=== PATIENT | female | born 1985 | race Caucasian/White ===

== ENCOUNTER 2016-07-25 18:20 | Inpatient (IN) | payer OTHER ==
[2016-07-25] MEDS ORDERED: LACTATED RINGERS 1,000 ML IV PRN (18:56)
[2016-07-25] MEDS ORDERED: MINERAL OIL 25 ML BOT ONE (19:28)
[2016-07-25] MEDS ORDERED: PUMP TUBING ONE (19:28)
[2016-07-25] MEDS ORDERED: LIDOCAINE 1% (PRES FREE) 30 ML VIAL ONE (19:28)
[2016-07-25] MEDS ORDERED: LIDOCAINE Viscous 2% 15 ML UDCUP ONE (19:28)
[2016-07-25] MEDS ORDERED: IV START KIT ONE (19:28)
[2016-07-25] MEDS ORDERED: LACTATED RINGERS 1,000 ML ONE (19:28)
[2016-07-25] MEDS ORDERED: OXYTOCIN 10 UNITS/ML VIAL ONE (19:28)
[2016-07-25] MEDS ORDERED: OXYTOCIN IN LR 0 ML IV ONE (19:29)
[2016-07-25 20:30] LABS: HEMATOCRIT 37.8 % (37.0-47.0); HEMOGLOBIN 13.2 gm/l (12.0-16.0); MEAN CELL VOLUME 94.7 fl (81.0-99.0); MEAN CORPUSCULAR HEMOGLOBIN 33.1 pg (27.0-31.0); MEAN CORPUSCULAR HGB CONC 34.9 g/dl (33.0-37.0); RED CELL DISTRIBUTION WIDTH 12.6 % (11.5-14.5)
[2016-07-25 20:52] VITALS: BMI 22.8
--- NOTE | 2016-07-25 21:21 | PCMAN ---
OB Admission Note - History : 2 Term: 1 : 0 Abortions (S&E): 0 Livin EDC:: 08/01/16 (by sure LMP) Gestational Age (weeks): 39 Days (#/7): 0 Admit Cervical Dilation:: 4 Admit Cervical Effacement (%):: 60 Admit Station:: -2 Admit Presentaton:: cephalic by clinic Membrane Status: Ruptured Rupture (Date): 07/25/16 Rupture (Time): 16:00 Membranes Comment:: clear fluid Labor Onset (Date): 07/25/16 Labor Onset (Time): 16:00 Contractions: Yes Contraction Frequency:: q 5-10min, mild Heart Rate:: 140 (moderate/accels present/decels absent) Status:: Cat. I, appropriate for [place] EFW:: 7.5lbs Summary of Course:: Onset to care at 11wks x 12 visits. Pre preg wt 120, BMI 19.7, TWG 26lbs. BERNIE by sure LMP. Uncomplicated . GBS neg. Rubella non-immune. Ob Hx: uncomplicated . Open to an epidural with this labor, supported by her and her sister. Reported gross SROM at 1600 for clear fluid. Regular mild contractions. Given hx of fast labor with her first, desired to come to [facility] for admit in labor. Open to Epidural anesthesia but currently undecided. Declines AMTSL. - Labs Blood Type: O (+) positive Hct/Hgb:: 11.1 Rubella Status: Non-immune GBS Status: Negative Other Labs:: nml 1hr GTT - Review of Systems ROS neg - Physical Exam General: Afebrile (No distress at this time) Psych/Mental Status: Mood/Affect Appropriate, Judgment/Insight Intact Neurological: Grossly Intact, Alert, Oriented x 4, Normal Gait, Normal Speech Lungs: Clear to Auscultation Bilaterally Cardiovascular: Regular Rate and Rhythm Genitourinary: Normal Female Genitalia (VE deferred due to SROM status) Extremities: Full ROM Skin: Normal Color, Warm, Dry, Intact - Problems (1) Spontaneous rupture of amniotic membranes Status: AcuteAssessment/Plan: A: 31yo with IUP at 39w0d SROM clear fluid, GBS neg VE: Cat. I, appropriate for IA Latent Labor P: Admit to [facility] Intermittent monitoring Encourage movement and expectant management If no change in contraction pattern, reassess in 4hrs, otherwise avoid SVE d/t ruptured status Anticipate
[2016-07-25] MEDS ORDERED: LIDOCAINE 1% (PRES FREE) 30 ML VIAL IF ONE (23:44)
[2016-07-26] MEDS ORDERED: LACTATED RINGERS 1,000 ML IV PRN (00:54)
[2016-07-26] MEDS ORDERED: BENZOCAINE/MENTHOL 60 APPLIC/BOT TP PRN (00:54)
[2016-07-26] MEDS ORDERED: LANOLIN 50 APPLIC/7G TUBE TP PRN (00:54)
[2016-07-26] MEDS ORDERED: OXYTOCIN IN LR 500 ML IV ONE (00:54)
[2016-07-26] MEDS ORDERED: MAGNESIUM HYDROXIDE 30 ML UDCUP PO PRN (00:54)
[2016-07-26] MEDS ORDERED: ACETAMINOPHEN 325 MG TABLET PO PRN (00:54)
[2016-07-26] MEDS ORDERED: HYDROCODONE/ACETAMINOPHEN 5/325MG TABLET PO PRN (00:54)
[2016-07-26] MEDS ORDERED: CALCIUM CARBONATE 500 MG TAB.CHEW PO PRN (00:54)
[2016-07-26] MEDS ORDERED: DOCUSATE SODIUM 100 MG CAPSULE PO PRN (00:54)
[2016-07-26] MEDS: IBUPROFEN 800 MG TABLET PO SCH ×4 (01:07→20:10)
--- NOTE | 2016-07-26 02:17 | PCMDEL ---
Delivery Note - Labor 1st stage (hr/min):: 6h45m 2nd stage (hr/min):: 0h6m 3rd stage (hr/min):: 0h6m Total (hr/min):: 6h57m Pushed (hr/min):: 0h1m - Delivery Delivery (Date): 07/26/16 Delivery (Time): 23:36 Infant Gender: Male Weight: 6 lb 15 oz Length: 1 ft 9 in Presentation: Cephalic Position: OA Umbilical Cord: 3 Vessel Delayed Cord Clamping:: > 3 min 1 Minute Total: 9 5 Minute Total: 9 Placenta:: spontaneous, irma, intact, 3vc EBL:: 300 Perineum:: 1st deg vaginal lac Suture:: 4-0 vicryl on SH Anesthesia/Meds:: lidocaine Length ROM:: 6h57m Comments:: Lucille made steady progress to complete dilation following SROM for clear fluid earlier in the day. She pushed once on her side to achieve rapid of vigorous male infant who was handed to mom and was placed skin to skin on maternal abdomen for drying and bonding. AMTSL declined. Delayed cord clamping until cessation of pulsation, cut by FOB. Cord blood collected. Spontaneous delivery of intact, moy placenta, 3vc. Fundus firm, midline, at U. 1nd degree vaginal laceration noted and repaired to approximation and hemostasis under local injectable lidocaine for adequate pain control. Hemostasis achieved. EBL 300ml.
--- NOTE | 2016-07-26 16:44 | PDOC44 ---
- Subjective Day: 1 (PPD #1 stable) S: Standing in room, up ad frida, walking around. States is ok, though he remains sleepy and not latching a lot. When he does, minimal issues. Plans to work with . Reports pain is tolerable, and managed with ibuprofen. Her bleeding is minimal. Feels very positive about fast experience! Desires discharge home tomorrow. Reports Flatus, Reports Pain Tolerable, Reports , Reports Lochia Light, Reports Tolerating Regular Diet - Objective Temp Pulse Resp BP Pulse Ox 97.8 F 64 16 120/57 07/26/16 14:05 07/26/16 14:05 07/26/16 14:05 07/26/16 14:05 Lab Results 07/25/16 19:30 WBC 6.5 RBC 3.99 L Hgb 13.2 Hct 37.8 Plt Count 142 07/25/16 19:30 MCH 33.1 H Current Medications Generic Name Dose Route Start Last Admin Trade Name Freq PRN Reason Stop Dose Admin Acetaminophen 325 - 650 mg 07/26/16 00:54 Tylenol PO Q4H PRN Pain (Mild) Acetaminophen/Hydrocodone Bitart 1 - 2 tab 07/26/16 00:54 [place] 5/325 PO Q4H PRN Pain (Moderate) Benzocaine/Menthol 1 applic 07/26/16 00:54 07/26/16 01:06 Dermoplast TP 1 bot PRN PRN Administration Patient Comfort Calcium Carbonate/Glycine 500 - 1,000 mg 07/26/16 00:54 Tums PO BID PRN Indigestion Docusate Sodium 100 mg 07/26/16 00:54 07/26/16 12:29 Colace PO 100 mg DAILY PRN Administration Comfort Emollient Ointment 1 applic 07/26/16 00:54 07/26/16 01:06 [id number] TP 1 tube PRN PRN Administration sore nipples Lactated Ringer's 1,000 mls @ 100 mls/hr 07/26/16 00:54 Lactated Ringers IV .Q10H PRN Titrate per clinical situation Ibuprofen 800 mg 07/26/16 01:00 07/26/16 12:29 Motrin PO 800 mg Q6H ROCCO Administration Magnesium Hydroxide 30 ml 07/26/16 00:54 Milk Of Magnesia PO BEDTIME PRN Constipation Sodium Chloride 10 ml 07/26/16 00:54 Normal Saline 10ml Flush IV PRN PRN IV Flush Sodium Chloride 10 ml 07/26/16 17:00 Normal Saline 10ml Flush IV Q8HR ROCCO - Physical Exam General: Afebrile Psych/Mental Status: Mood/Affect Appropriate, Judgment/Insight Intact, Bonding Well Neurological: Grossly Intact, Alert, Oriented x 4, Normal Gait, Normal Speech Lungs: Clear to Auscultation Bilaterally Cardiovascular: Regular Rate and Rhythm Breast: Soft, Skin intact, Nipples Intact Fundus: Firm, Midline, Below Umbilicus Lochia: Light Extremities: Full ROM Skin: Normal Color, Warm, Dry, Intact - Problems:Assessment/Plan (1) Spontaneous rupture of amniotic membranes Status: AcuteAssessment/Plan: A: Routine recovery, PPD #1 s/p exclusively VSS P: Handout given. Reviewed BABIES clinic support, recommended skin to skin. Reviewed experience. stable, anticipate discharge tomorrow. Disposition: Stable, Anticipate DC Home Tomorrow
[2016-07-26] MEDS ORDERED: MEASLES,MUMPS&RUBELLA VACCINE 0.5 ML VIAL SUB-Q V ONE (20:08)
[2016-07-27] MEDS: IBUPROFEN 800 MG TABLET PO SCH (01:54)
[2016-07-27 06:58] LABS: HEMATOCRIT 33.9 % (37.0-47.0); HEMOGLOBIN 11.5 gm/l (12.0-16.0)
[2016-07-27 07:53] VITALS: BP 111/64
--- NOTE | 2016-07-27 11:55 | PDOC39B ---
Hospital Course: ADMIT DATE: 07/25/16 DISCHARGE DATE: [] ADMISSION DIAGNOSES: [] PROCEDURES: [] HISTORY OF PRESENT ILLNESS: 31 year old G2 T1 L1 at 39 weeks 0 days presenting with gross SROM followed by spontaneous onset of contractions. Lucille made steady progress to complete dilation. She pushed once on her side to achieve rapid of vigorous male infant. AMTSL declined. Spontaneous delivery of intact, moy placenta, 3vc. Fundus firm, midline, at U. Vaginal laceration noted and repaired to approximation and hemostasis under local injectable lidocaine for adequate pain control. Hemostasis achieved. EBL 300ml. HOSPITAL COURSE: The patient has had an uncomplicated hsopital course. She feels well to day and is excited to go home. By day of discharge the patient is ambulating, eating, voiding, and passing flatus without difficulty. Pain is controlled and lochia is appropriate. She is well, with some pain and redness on her right nipple. She is using soothies, lanolin and positioning to reduce the pain with feeding. to visit before discharge and will follow . Midwifery 'After the ' handout given to patient. - Physical Exam Vital Signs: Temp Pulse Resp BP Pulse Ox 98.9 F 64 16 111/64 07/27/16 07:30 07/27/16 07:30 07/27/16 07:30 07/27/16 07:30 General: Afebrile Psych/Mental Status: Mood/Affect Appropriate, Judgment/Insight Intact, Bonding Well Neurological: Grossly Intact, Alert, Oriented x 4 HEENT: Atraumatic Lungs: Clear to Auscultation Bilaterally, Normal Air Movement Cardiovascular: Regular Rate and Rhythm, Normal S1, Normal S2 Breast: Soft, Erythema (right nipple), Nipples Intact Fundus: Firm, Below Umbilicus Genitourinary: Normal Female Genitalia Lochia: Light - Discharge Diagnosis (1) (normal spontaneous vaginal delivery) Status: AcuteAssessment/Plan: A: PP day 1 s/p Normal recovery , some right sided nipple discomfort Lochi appropriate Pain controlled P: C/s to home care Follow up with as necessary. Midwifery 'After the ' handout given to patient. RTC for 2 week visit as scheduled. Plans condoms and mini-pill until gets vasectomy. - Discharge Plan Condition: Stable Disposition: Home Instruction Forms: Vaginal Discharge Instructions Follow-Up: Karie Gracia CNM [Certified Nurse [employer]] - As scheduled (August 08, 2016 2:20pm)
== END 2016-07-27 11:50 | disposition home or self-care (01) | DRG 775 ==
LOC: FBCOUT 18:20 → FBC 18:26 → FBCOUT 18:53
PROVIDERS: ADMIT Advanced Practice Midwife; ATTEND Advanced Practice Midwife
PROC: 10E0XZZ Delivery of Products of Conception, External Approach (ICD-10-PCS; principal; 2016-07-26)
PROC: 0HQ9XZZ Repair Perineum Skin, External Approach (ICD-10-PCS; 2016-07-26)
PROC: 3E0234Z Introduction of Serum, Toxoid and Vaccine into Muscle, Percutaneous Approach (ICD-10-PCS; 2016-07-27)
DX: O99.89 Other specified diseases and conditions complicating pregnancy, childbirth and the puerperium (principal); O70.0 First degree perineal laceration during delivery; O62.3 Precipitate labor; Z3A.39 39 weeks gestation of pregnancy; Z37.0 Single live birth